=== PATIENT | male | born 1995 | race Caucasian/White ===

== ENCOUNTER 2016-11-29 04:38 | Emergency (ER) | payer BC, OTHER ==
[2016-11-29] MEDS ORDERED: NARCAN 1 MG/ML IV ONE (04:57)
[2016-11-29] MEDS ORDERED: Sodium Chloride 0.9% 1000 ML 1,000 ML IV SCH (05:00)
--- NOTE | 2016-11-29 05:09 | ERPHSYRPT ---
- History of Present Illness Time Seen by Provider: 11/29/16 04:54 Source: other (N.N.) Exam Limitations: other (PT WILL NOT ANSWER ANY OF MY QUESTIONS) Patient Subjective Stated Complaint: PER EMS PT SMOKED DRUGS WITH FRIEND APPROX 1 HOUR AGO. AFTER DOING THIS PT WITH CONFUSION, NOT ACTING RIGHT. PER EMS AMBULATED TO AMBULANCE ASSISTING PT. Triage Nursing Assessment: PT AWAKE, FOLLOWS COMMANDS APPROPRIATELY, DOES NOT SPEAK TO STAFF. SKIN P/W/D, RESPS NON-LABORED. PUPILS PERRL HOWEVER SLUGGISH TO RESPOND. EKG SINUS TACHYCARDIA. SPO2 100% ROOM AIR. Physician History: PT WAS BROUGHT IN BY EMS AFTER ALLEGEDLY SMOKING DRUGS WITH A FRIEND ABOUT 1 HOUR AGO WITH RESULTANT ALTERED MENTAL STATUS. PT WILL NOT ANSWER ANY OF MY QUESTIONS. Allergies/Adverse Reactions: No Known Drug Allergies Allergy (Unverified 11/29/16 06:14) Home Medications: No Home Meds 1 ea MC UD 11/29/16 [History] - Review of Systems Neurological: Other (AMS) All Other Systems: Unable due to condition (PT WILL NOT ANSWER ANY OF MY QUESTIONS.) - Past Medical History Pertinent Past Medical History: No (UNKNOWN) - Past Surgical History Past Surgical History: No (UNKNOWN) - Social History Smoking Status: Unknown if ever smoked Exposure to second hand smoke: (UNKNOWN) Drug Use: other Patient Lives Alone: (UNKNOWN) - Nursing Vital Signs Nursing Vital Signs: Initial Vital Signs Temperature 98.5 F Temperature Source Oral Pulse Rate 108 Respiratory Rate 16 Blood Pressure [Left Arm] 115/44 Pain Intensity 0 - Physical Exam General Appearance: lethargy Eye Exam: PERRL/EOMI Ears, Nose, Throat Exam: dry mucous membranes Neck Exam: normal inspection Respiratory Exam: lungs clear Cardiovascular Exam: tachycardia Gastrointestinal/Abdomen Exam: soft, normal bowel sounds Extremity Exam: normal inspection, No pedal edema Neurologic Exam: uncooperative, other (LETHARGIC) Skin Exam: warm, dry SpO2 Interpretation: normal SpO2: 100 Oxygen Delivery: Room Air - Course Nursing assessment & vital signs reviewed: Yes EKG Interpreted by Me: RATE (120), Sinus Tach, NORMAL AXIS, Other (INCOMPLETE RBBB) - CT Exams Head CT Interpretation: Tele-radiologist Report (NORMAL) Ordered Tests: Active Orders 24 hr Category Date Time Status Accucheck STAT Care 11/29/16 04:57 Active Director Personal STAT Care 11/29/16 04:57 Active Cath for Specimen-Straight STAT Care 11/29/16 04:57 Active Cath for Specimen-Straight STAT Care 11/29/16 04:57 Active EKG-ER Only STAT Care 11/29/16 04:57 Active IV Insertion STAT Care 11/29/16 04:57 Active Psychiatric Evaluation STAT Care 11/29/16 04:57 Active Pulse Oximetry (ED) STAT Care 11/29/16 04:57 Active CHEST 1 VIEW (PORTABLE) Stat Exams 11/29/16 04:59 Taken HEAD WITHOUT CONTRAST [CT] Stat Exams 11/29/16 05:04 Taken ACETAMINOPHEN Stat Lab 11/29/16 05:21 Completed AMYLASE Stat Lab 11/29/16 05:21 Completed ARTERIAL BLOOD GASES Urgent Lab 11/29/16 05:13 Completed BLOOD CULTURE Stat Lab 11/29/16 05:00 Received CBC W DIFF Stat Lab 11/29/16 05:21 Completed CMP Stat Lab 11/29/16 05:21 Completed CULTURE,URINE Stat Lab 11/29/16 04:59 Ordered Ethyl Alcohol,Urine Stat Lab 11/29/16 05:20 Completed LIPASE Stat Lab 11/29/16 05:21 Completed Lactic Acid Urgent Lab 11/29/16 05:13 Completed MAGNESIUM Stat Lab 11/29/16 05:21 Completed Manual Differential NC Stat Lab 11/29/16 05:21 Completed SALICYLATE Stat Lab 11/29/16 05:21 Completed TROPONIN Stat Lab 11/29/16 05:21 Completed UA W/ MICROSCOPIC Stat Lab 11/29/16 05:20 Completed Urine Triage Profile Stat Lab 11/29/16 05:20 Completed Medication Summary Generic Name Dose Route Start Last Admin Trade Name Freq PRN Reason Stop Dose Admin Sodium Chloride 1,000 mls @ 100 mls/hr 11/29/16 05:00 11/29/16 05:45 Sodium Chloride 0.9% 1000 Ml IV 12/29/16 04:59 100 mls/hr .Q10H YULIANA Administration Potassium Chloride 100 mls @ 50 mls/hr 11/29/16 05:36 11/29/16 05:44 Potassium Chloride 20 Meq In Water 100ml IV 11/29/16 07:35 50 mls/hr STAT ONE Administration Magnesium Oxide 400 mg 11/29/16 10:00 11/29/16 06:59 Mag-Ox 400 PO 12/29/16 09:59 400 mg BID YULIANA Administration Discontinued Medications Generic Name Dose Route Start Last Admin Trade Name Briana PRN Reason Stop Dose Admin Sodium Chloride 1,000 mls @ 999 mls/hr 11/29/16 05:35 11/29/16 07:00 Sodium Chloride 0.9% 1000 Ml IV 11/29/16 06:35 999 mls/hr .Q1H1M STA Administration Sodium Chloride Confirm 11/29/16 05:43 Sodium Chloride 0.9% 1000 Ml Administered 11/29/16 05:44 Dose 1,000 mls @ ud .ROUTE .STK-MED ONE Potassium Chloride Confirm 11/29/16 05:43 Potassium Chloride 20 Meq In Water 100ml Administered 11/29/16 05:44 Dose 100 mls @ ud IV .STK-MED ONE Sodium Chloride Confirm 11/29/16 06:57 Sodium Chloride 0.9% 1000 Ml Administered 11/29/16 06:58 Dose 1,000 mls @ ud .ROUTE .STK-MED ONE Magnesium Oxide Confirm 11/29/16 06:58 Mag-Ox 400 Administered 11/29/16 06:59 Dose 400 mg .ROUTE .STK-MED ONE Naloxone HCl 2 mg 11/29/16 04:57 11/29/16 05:45 Narcan 1 Mg/Ml IV 11/29/16 04:58 2 mg STAT ONE Administration Naloxone HCl Confirm 11/29/16 05:43 Narcan 1 Mg/Ml Administered 11/29/16 05:44 Dose 2 mg .ROUTE .STK-MED ONE Lab/Rad Data: Laboratory Result Diagrams 11/29/16 05:21 11/29/16 05:21 Laboratory Results 11/29/16 11/29/16 11/29/16 Range/Units 05:21 05:21 05:21 WBC (4.0-10.5) K/mm3 RBC (4.1-5.6) M/mm3 Hgb (12.5-18.0) gm/dl Hct (42-50) % MCV (78-100) fl MCH (26-32) pg MCHC (32-36) g/dl RDW (11.5-14.0) % Plt Count (150-450) K/mm3 MPV (6-9.5) fl Segmented Neutrophils (36.-66.) % Lymphocytes (Manual) (24-44) % Monocytes (Manual) (0.0-12.0) % Platelet Estimate (NORMAL) Poikilocytosis Anisocytosis Puncture Site pCO2 (35-45) mmHg pO2 (75-100) mmHg Base Excess (-2.0-2.0) O2 Saturation (94-100) g/dF ABG pH (7.35-7.45) ABG HCO3 (22-28) ABG O2 Sat (Measured) (95-100) % Fabián Test A-a Gradient a/A Ratio Hemoglobin Carboxyhemoglobin (0.0-6.9) % THgb Methemoglobin (1.4-1.5) % Potassium 3.5 (3.5-5.1) Temperature C POC O2 Flow Rate % Sodium 140 (136-145) mEq/L Chloride 103 (98-107) mEq/L Carbon Dioxide 26.0 (21-32) mEq/L Anion Gap 14.1 (5-15) MEQ/L BUN 18 (9-20) mg/dL Creatinine 1.24 (0.55-1.30) mg/dl Estimated GFR > 60 ML/MIN Glucose 138 H (70-110) MG/DL Lactic Acid (0.4-2.0) Calcium 8.8 (8.5-10.1) mg/dL Magnesium 1.7 L (1.8-2.4) mg/dL Total Bilirubin 0.2 (0.2-1.0) mg/dL AST 21 (15-37) U/L ALT 31 (12-78) U/L Alkaline Phosphatase 52 (46-116) U/L Troponin I < 0.017 (0.000-0.056) ng/ml Serum Total Protein 7.5 (6.4-8.2) gm/dL Albumin 4.0 (3.4-5.0) g/dL Amylase 57 (25-115) U/L Lipase 175 (73-393) U/L Ur Collection Type Urine Color (YELLOW) Urine Appearance (CLEAR) Urine pH (5-6) Ur Specific [place] (1.005-1.025) Urine Protein (Negative) Urine Glucose (UA) (NEGATIVE) mg/dL Urine Ketones (NEGATIVE) Urine Nitrite (NEGATIVE) Urine Bilirubin (NEGATIVE) Urine Urobilinogen (0-1) mg/dL Urine WBC (Auto) (NEGATIVE) Urine RBC (Auto) (0-5) Nikita/ul Urine Microscopic RBC (0-2) /HPF Ur Epithelial Cells (FEW) /HPF Urine Bacteria (NEGATIVE) /HPF Salicylates < 2.8 L (2.8-20.0) mg/dl Urine Opiates Level (NEGATIVE) Ur Methadone (NEGATIVE) Acetaminophen < 2.0 L (10-30) ug/ml Urine Barbiturates (NEGATIVE) Ur Phencyclidine (PCP) (NEGATIVE) Urine Amphetamine (NEGATIVE) U Benzodiazepine Level (NEGATIVE) Urine Cocaine (NEGATIVE) Urine Marijuana (THC) (NEGATIVE) Urine Ethyl Alcohol (0.00-20) mg/dl Specimen Received 11/29/16 11/29/16 11/29/16 Range/Units 05:21 05:20 05:20 WBC 13.3 H (4.0-10.5) K/mm3 RBC 4.96 (4.1-5.6) M/mm3 Hgb 14.2 (12.5-18.0) gm/dl Hct 42.1 (42-50) % MCV 84.9 (78-100) fl MCH 28.6 (26-32) pg MCHC 33.7 (32-36) g/dl RDW 13.3 (11.5-14.0) % Plt Count 277 (150-450) K/mm3 MPV 10.9 H (6-9.5) fl Segmented Neutrophils 78 H (36.-66.) % Lymphocytes (Manual) 20 L (24-44) % Monocytes (Manual) 2 (0.0-12.0) % Platelet Estimate NORMAL (NORMAL) Poikilocytosis 1+ Anisocytosis 1+ Puncture Site pCO2 (35-45) mmHg pO2 (75-100) mmHg Base Excess (-2.0-2.0) O2 Saturation (94-100) g/dF ABG pH (7.35-7.45) ABG HCO3 (22-28) ABG O2 Sat (Measured) (95-100) % Fabián Test A-a Gradient a/A Ratio Hemoglobin Carboxyhemoglobin (0.0-6.9) % THgb Methemoglobin (1.4-1.5) % Potassium (3.5-5.1) Temperature C POC O2 Flow Rate % Sodium (136-145) mEq/L Chloride (98-107) mEq/L Carbon Dioxide (21-32) mEq/L Anion Gap (5-15) MEQ/L BUN (9-20) mg/dL Creatinine (0.55-1.30) mg/dl Estimated GFR ML/MIN Glucose (70-110) MG/DL Lactic Acid (0.4-2.0) Calcium (8.5-10.1) mg/dL Magnesium (1.8-2.4) mg/dL Total Bilirubin (0.2-1.0) mg/dL AST (15-37) U/L ALT (12-78) U/L Alkaline Phosphatase (46-116) U/L Troponin I (0.000-0.056) ng/ml Serum Total Protein (6.4-8.2) gm/dL Albumin (3.4-5.0) g/dL Amylase (25-115) U/L Lipase (73-393) U/L Ur Collection Type CLEAN CATCH Urine Color YELLOW (YELLOW) Urine Appearance CLEAR (CLEAR) Urine pH 5.5 (5-6) Ur Specific [place] 1.015 (1.005-1.025) Urine Protein NEGATIVE (Negative) Urine Glucose (UA) NEGATIVE (NEGATIVE) mg/dL Urine Ketones NEGATIVE (NEGATIVE) Urine Nitrite NEGATIVE (NEGATIVE) Urine Bilirubin NEGATIVE (NEGATIVE) Urine Urobilinogen 0.2 (0-1) mg/dL Urine WBC (Auto) NEGATIVE (NEGATIVE) Urine RBC (Auto) SMALL (0-5) Nikita/ul Urine Microscopic RBC 5-10 (0-2) /HPF Ur Epithelial Cells FEW (FEW) /HPF Urine Bacteria FEW (NEGATIVE) /HPF Salicylates (2.8-20.0) mg/dl Urine Opiates Level NEG. (NEGATIVE) Ur Methadone NEG. (NEGATIVE) Acetaminophen (10-30) ug/ml Urine Barbiturates NEG. (NEGATIVE) Ur Phencyclidine (PCP) NEG. (NEGATIVE) Urine Amphetamine NEG. (NEGATIVE) U Benzodiazepine Level NEG. (NEGATIVE) Urine Cocaine NEG. (NEGATIVE) Urine Marijuana (THC) NEG. (NEGATIVE) Urine Ethyl Alcohol (0.00-20) mg/dl Specimen Received 0316 0530 11/29/16 11/29/16 Range/Units 05:20 05:13 WBC (4.0-10.5) K/mm3 RBC (4.1-5.6) M/mm3 Hgb (12.5-18.0) gm/dl Hct (42-50) % MCV (78-100) fl MCH (26-32) pg MCHC (32-36) g/dl RDW (11.5-14.0) % Plt Count (150-450) K/mm3 MPV (6-9.5) fl Segmented Neutrophils (36.-66.) % Lymphocytes (Manual) (24-44) % Monocytes (Manual) (0.0-12.0) % Platelet Estimate (NORMAL) Poikilocytosis Anisocytosis Puncture Site RIGHT BRACHIAL pCO2 44 (35-45) mmHg pO2 101 H (75-100) mmHg Base Excess 0.5 (-2.0-2.0) O2 Saturation 96.0 (94-100) g/dF ABG pH 7.38 (7.35-7.45) ABG HCO3 26.0 (22-28) ABG O2 Sat (Measured) 99.4 (95-100) % Fabián Test NOT APPLICABLE A-a Gradient -6 a/A Ratio 1.06 Hemoglobin 14.8 Carboxyhemoglobin 1.8 (0.0-6.9) % THgb Methemoglobin 1.5 (1.4-1.5) % Potassium 3.4 L (3.5-5.1) Temperature 37.0 C POC O2 Flow Rate 21 % Sodium (136-145) mEq/L Chloride (98-107) mEq/L Carbon Dioxide (21-32) mEq/L Anion Gap (5-15) MEQ/L BUN (9-20) mg/dL Creatinine (0.55-1.30) mg/dl Estimated GFR ML/MIN Glucose (70-110) MG/DL Lactic Acid 2.7 H (0.4-2.0) Calcium (8.5-10.1) mg/dL Magnesium (1.8-2.4) mg/dL Total Bilirubin (0.2-1.0) mg/dL AST (15-37) U/L ALT (12-78) U/L Alkaline Phosphatase (46-116) U/L Troponin I (0.000-0.056) ng/ml Serum Total Protein (6.4-8.2) gm/dL Albumin (3.4-5.0) g/dL Amylase (25-115) U/L Lipase (73-393) U/L Ur Collection Type Urine Color (YELLOW) Urine Appearance (CLEAR) Urine pH 5.5 (5-6) Ur Specific [place] (1.005-1.025) Urine Protein (Negative) Urine Glucose (UA) (NEGATIVE) mg/dL Urine Ketones (NEGATIVE) Urine Nitrite (NEGATIVE) Urine Bilirubin (NEGATIVE) Urine Urobilinogen (0-1) mg/dL Urine WBC (Auto) (NEGATIVE) Urine RBC (Auto) (0-5) Nikita/ul Urine Microscopic RBC (0-2) /HPF Ur Epithelial Cells (FEW) /HPF Urine Bacteria (NEGATIVE) /HPF Salicylates (2.8-20.0) mg/dl Urine Opiates Level (NEGATIVE) Ur Methadone (NEGATIVE) Acetaminophen (10-30) ug/ml Urine Barbiturates (NEGATIVE) Ur Phencyclidine (PCP) (NEGATIVE) Urine Amphetamine (NEGATIVE) U Benzodiazepine Level (NEGATIVE) Urine Cocaine (NEGATIVE) Urine Marijuana (THC) (NEGATIVE) Urine Ethyl Alcohol 6 (0.00-20) mg/dl Specimen Received - Progress Progress Note: 11/29/16 07:29 PT IS NOW ORIENTED X3, DENIES SUICIDAL AND HOMICIDAL IDEATION, DENIES PAIN ANYWHERE. REPORTEDLY PT WENT OVER TO A FRIEND'S HOUSE AND SMOKED SOMETHING THAT LOOKED LIKE A CIGAR AND BECAME CONFUSED. [facility] CONSULT RECOMMENDED PT TO GO HOME. - Departure Time of Disposition: 07:38 Departure Disposition: Home Clinical Impression: ALTERED MENTAL STATUS, POSSIBLE DRUG OVERDOSAGE Condition: Fair Critical Care Time: No Instructions: Drug Overdose in Adults Additional Instructions: FOLLOW UP WITH PRIVATE DOCTOR TOMORROW. DO NOT USE ANY MEDICATION UNLESS PRESCRIBED TO YOU BY A DOCTOR.
[2016-11-29 05:17] LABS: A-aADO2 -6; ARTERIAL BLD GAS O2 SATURATION 99.4 % (95-100); ARTERIAL BLOOD GAS BASE EXCESS 0.5 (-2.0-2.0); ARTERIAL BLOOD GAS FIO2 21 %; ARTERIAL BLOOD GAS PO2 101 mmHg (75-100); ARTERIAL BLOOD GAS pH 7.38 (7.35-7.45); Lactic Acid 2.7 (0.4-2.0)
[2016-11-29 05:26] LABS: Mean Cell Volume 84.9 fl (78-100); Mean Corpuscular Hemoglobin 28.6 pg (26-32); Mean Platelet Volume 10.9 fl (6-9.5); Platelet Count 277 K/mm3 (150-450); Red Blood Count 4.96 M/mm3 (4.1-5.6); Red Cell Distribution Width 13.3 % (11.5-14.0); White Blood Count 13.3 K/mm3 (4.0-10.5)
[2016-11-29] MEDS ORDERED: Sodium Chloride 0.9% 1000 ML 1,000 ML IV STA (05:35)
[2016-11-29] MEDS ORDERED: POTASSIUM CHLORIDE 20 mEq IN WATER 100ML 100 ML IV ONE ×2 (05:36→05:43)
[2016-11-29 05:41] LABS: LIPASE 175 U/L (73-393)
[2016-11-29] MEDS ORDERED: Sodium Chloride 0.9% 1000 ML 1,000 ML ONE ×2 (05:43→06:57)
[2016-11-29] MEDS ORDERED: NARCAN 1 MG/ML ONE (05:43)
[2016-11-29 05:46] LABS: ALKALINE PHOSPHATASE 52 U/L (46-116); ANION GAP 14.1 MEQ/L (5-15); BILIRUBIN,TOTAL 0.2 mg/dL (0.2-1.0); BLOOD UREA NITROGEN 18 mg/dL (9-20); CHLORIDE 103 mEq/L (98-107); Glucose 138 MG/DL (70-110); Potassium 3.5 mEq/L (3.5-5.1); SGOT/AST 21 U/L (15-37); SGPT/ALT 31 U/L (12-78); SODIUM 140 mEq/L (136-145); Total Protein 7.5 gm/dL (6.4-8.2)
[2016-11-29 05:48] LABS: MAGNESIUM 1.7 mg/dL (1.8-2.4)
[2016-11-29 05:49] LABS: ACETAMINOPHEN < 2.0 ug/ml (10-30); TROPONIN < 0.017 ng/ml (0.000-0.056)
[2016-11-29 06:00] LABS: COMPLETE URINE MICROSCOPIC? YES; Collection Type CLEAN CATCH; Ph 5.5 (5-6)
[2016-11-29 06:16] LABS: Bacteria FEW /HPF (NEGATIVE); Epithelial Cells FEW /HPF (FEW)
[2016-11-29 06:52] LABS: ANISOCYTOSIS 1+; Platelet Estimate NORMAL (NORMAL); Poikilocytosis 1+; Total Cells Counted 100
[2016-11-29] MEDS ORDERED: MAG-OX 400 ONE (06:58)
--- NOTE | 2016-11-29 09:25 | XRAY ---
Indication: Acute mental status change. Multiple contiguous axial images obtained through the head without contrast. Comparison: None Normal appearing brain parenchyma, ventricles, and bony calvarium. Left sphenoid sinus 5 mm polyp/retention cyst. Remaining visualized paranasal sinuses and mastoid air cells are clear. Impression: No acute intracranial abnormalities. Incidental left sphenoid sinus polyp/retention cyst. Comment: Preliminary interpretation was made by [facility]. No discrepancy. CT DI 68.15
--- NOTE | 2016-11-29 09:27 | XRAY ---
Indication: Acute mental status change. Comparison: June 11, 2016. Single AP chest again demonstrates normal heart, lungs, and bony thorax.
[2016-11-29] MEDS ORDERED: MAG-OX 400 PO SCH (10:00)
[2016-11-29 11:52] VITALS: BP 128/63; PULSE 120; O2SAT 98
== END 2016-11-29 07:48 | disposition home or self-care (01) ==
LOC: ED 04:38
DX: R41.82 Altered mental status, unspecified (principal)
CPT/HCPCS: 36415; 36600; 70450; 71010; 80053; 80307; 80320; 81000; 82150; 82375; 82803; 82962; 83605; 83690; 83735; 83986; 84484; 85025; 87040; 87086; 90791; 93005; 93041; 96360; 96361; 96365; 96366; 96374; 99284; G0481; J2310; J3480; P9612; Q3014; A9270-GY

== ENCOUNTER 2017-08-06 04:58 | Observation (INO) | payer OTHER, SELFPAY ==
[2017-08-06] MEDS ORDERED: TORAdol 30 mg Injection IV ONE (05:15)
--- NOTE | 2017-08-06 05:17 | ERPHSYRPT ---
<PADDY CHADWICK - Last Filed: 08/06/17 06:54> - History of Present Illness Time Seen by Provider: 08/06/17 05:11 Historian: patient Exam Limitations: no limitations Patient Subjective Stated Complaint: Pt C/O shortness of breath with cough. Reports recent febrile illness with temp highest 104 at home. Reports this was greater than 48 hours ago. Reports pain started left side of ribs radiating into collarbone worse with deep inspiration and movement since yesterday. Reports pain 10/10. Reports cough has been dry and non-productive. Triage Nursing Assessment: Pt alert, oriented, answers questions appropriately. Pt ambulatory to tx room, steady gait noted. Pt appears tachypenic, speaking in 4-5 word bursts. Pt yells out when taking a deep breath. Lung sounds clear all matthews. No wheezes, rhonchi, rales noted. Physician History: 21 y/o male comes to the ER with complaints of pleuritic chest pain, cough and subjective fever. Pt states that he started having fever a few days ago as well as cough. There are multiple people in the house who had similar symptoms. Pt also reports that yesterday at noon he started having left sided chest pain that went over to the right side and radiates to the collar bone. Pt describes the pain as sharp, constant, worse with inspiration, 10/10 and pt has not taken any pain meds. Timing/Duration: day(s) Activities at Onset: none Quality: sharpness Location: substernal Chest Pain Radiation: back Severity of Pain-Max: severe Severity of Pain-Current: severe Modifying Factors: Improves With: breathing, coughing Associated Symptoms: shortness of breath, cough Prior Chest Pain/Cardiac Workup: no prior chest pain Nitro Today/Relief: no nitro taken today Aspirin Treatment Today: no aspirin today Allergies/Adverse Reactions: No Known Drug Allergies Allergy (Unverified 11/29/16 06:14) Home Medications: No Home Meds [No Home Meds] 1 [facility] YEFRI 11/29/16 [History] Immunizations Up to Date: No - Review of Systems Constitutional: No Fever, No Chills Eyes: No Symptoms Ears, Nose, & Throat: No Symptoms Respiratory: Cough, Dyspnea, Dyspnea on Exertion (LYON) Cardiac: Chest Pain, No Edema, No Palpitations, No Syncope Abdominal/Gastrointestinal: No Abdominal Pain, No Nausea, No Vomiting, No Diarrhea Genitourinary Symptoms: No Dysuria Musculoskeletal: No Back Pain, No Neck Pain Skin: No Rash Neurological: No Dizziness, No Focal Weakness, No Sensory Changes Psychological: No Symptoms Endocrine: No Symptoms All Other Systems: Reviewed and Negative - Past Medical History Pertinent Past Medical History: No - Past Surgical History Past Surgical History: No - Social History Smoking Status: Never smoker Exposure to second hand smoke: No Drug Use: none, other Patient Lives Alone: No - Nursing Vital Signs Nursing Vital Signs: Initial Vital Signs Temperature 98.2 F 08/06/17 05:06 Pulse Rate 109 H 08/06/17 05:06 Respiratory Rate 28 H 08/06/17 05:06 Blood Pressure 141/89 08/06/17 05:06 O2 Sat by Pulse Oximetry 96 08/06/17 05:06 Pain Scale Pain Intensity 8 - Physical Exam General Appearance: moderate distress, alert Eye Exam: PERRL/EOMI, eyes nml inspection Ears, Nose, Throat Exam: normal ENT inspection, moist mucous membranes Neck Exam: normal inspection, non-tender, supple, full range of motion Respiratory Exam: normal breath sounds, chest tenderness, lungs clear, No respiratory distress Cardiovascular Exam: regular rate/rhythm, normal heart sounds, tachycardia Gastrointestinal/Abdomen Exam: soft, No tenderness, No mass Back Exam: normal inspection, No CVA tenderness, No vertebral tenderness Extremity Exam: normal inspection, normal range of motion Neurologic Exam: alert, oriented x 3, cooperative, normal mood/affect, sensation nml, No motor deficits Skin Exam: normal color, warm, dry SpO2 Interpretation: normal SpO2: 96 Oxygen Delivery: Room Air - Course Nursing assessment & vital signs reviewed: Yes EKG Interpreted by Me: RATE, NORMAL AXIS, NORMAL INTERVALS, NORMAL QRS, NORMAL ST-T (HR 94) Ordered Tests: Active Orders 24 hr Category Date Time Status Plastics Repairer STAT Care 08/06/17 05:15 Active EKG-ER Only STAT Care 08/06/17 05:14 Active IV Insertion STAT Care 08/06/17 05:14 Active IV Insertion-2nd Peripheral STAT Care 08/06/17 07:25 Active NPO (ED) STAT Care 08/06/17 07:32 Active Oxygen-ED Only NASAL CANNULA 2 lpm Care 08/06/17 07:35 Active CHEST 2 VIEWS (PA AND LAT) Stat Exams 08/06/17 05:14 Taken CHEST WITH CONTRAST [CT] Stat Exams 08/06/17 06:20 Taken BLOOD CULTURE Stat Lab 08/06/17 05:30 Received CBC W DIFF Stat Lab 08/06/17 05:10 Completed CK-Creatinine Phosphokinase Stat Lab 08/06/17 05:10 Completed CMP Stat Lab 08/06/17 05:10 Completed D-DIMER QUANTITATION Stat Lab 08/06/17 05:10 Completed Lactic Acid Stat Lab 08/06/17 05:15 Ordered NT PRO BNP Stat Lab 08/06/17 07:25 Ordered PROTIME WITH INR Stat Lab 08/06/17 07:24 Ordered PTT Stat Lab 08/06/17 07:24 Ordered TROPONIN Q3H Lab 08/06/17 05:10 Completed TROPONIN Q3H Lab 08/06/17 08:15 Ordered TROPONIN Q3H Lab 08/06/17 11:15 Ordered TROPONIN Q3H Lab 08/06/17 14:15 Ordered TROPONIN Q3H Lab 08/06/17 17:15 Ordered Medication Summary Generic Name Dose Route Start Last Admin Trade Name Freq PRN Reason Stop Dose Admin Apixaban 10 mg 08/06/17 10:00 Eliquis PO 09/05/17 09:59 BID YULIANA Sodium Chloride 1,000 mls @ 100 mls/hr 08/06/17 07:45 08/06/17 07:39 Sodium Chloride 0.9% 1000 Ml IV 09/05/17 07:44 100 mls/hr .Q10H YULIANA Administration Discontinued Medications Generic Name Dose Route Start Last Admin Trade Name Freq PRN Reason Stop Dose Admin Sodium Chloride 1,000 mls @ 999 mls/hr 08/06/17 05:57 08/06/17 06:01 Sodium Chloride 0.9% 1000 Ml IV 08/06/17 06:57 999 mls/hr .Q1H1M STA Administration Sodium Chloride Confirm 08/06/17 06:00 Sodium Chloride 0.9% 1000 Ml Administered 08/06/17 06:01 Dose 1,000 mls @ ud .ROUTE .STK-MED ONE Ketorolac Tromethamine 30 mg 08/06/17 05:15 08/06/17 05:19 Toradol 30 Mg Injection IV 08/06/17 05:16 30 mg STAT ONE Administration Ketorolac Tromethamine Confirm 08/06/17 05:18 Toradol 30 Mg Injection Administered 08/06/17 05:19 Dose 30 mg .ROUTE .STK-MED ONE Morphine Sulfate 4 mg 08/06/17 05:57 08/06/17 06:02 Morphine Sulfate 4 Mg Inj IV 08/06/17 05:58 4 mg STAT ONE Administration Morphine Sulfate Confirm 08/06/17 06:00 Morphine Sulfate 4 Mg Inj Administered 08/06/17 06:01 Dose 4 mg .ROUTE .STK-MED ONE Lab/Rad Data: Laboratory Result Diagrams 08/06/17 05:10 08/06/17 05:10 Laboratory Results 08/06/17 08/06/17 08/06/17 Range/Units 05:10 05:10 05:10 WBC (4.0-10.5) K/mm3 RBC (4.1-5.6) M/mm3 Hgb (12.5-18.0) gm/dl Hct (42-50) % MCV (78-100) fl MCH (26-32) pg MCHC (32-36) g/dl RDW (11.5-14.0) % Plt Count (150-450) K/mm3 MPV (6-9.5) fl Gran % (36.0-66.0) % Lymphocytes % (24.0-44.0) % Monocytes % (0.0-12.0) % Eosinophils % (0.00-5.0) % Basophils % (0.0-0.4) % Basophils # (0-0.4) D-Dimer 7055 H* (0-500) ng/mL Sodium 139 (136-145) mEq/L Potassium 3.9 (3.5-5.1) mEq/L Chloride 96 L (98-107) mEq/L Carbon Dioxide 28.9 (21-32) mEq/L Anion Gap 17.9 H (5-15) MEQ/L BUN 10 (9-20) mg/dL Creatinine 1.36 H (0.55-1.30) mg/dl Estimated GFR > 60 ML/MIN Glucose 129 H (70-110) MG/DL Calcium 9.3 (8.5-10.1) mg/dL Total Bilirubin 0.90 (0.2-1.0) mg/dL AST 14 L (15-37) U/L ALT 32 (12-78) U/L Alkaline Phosphatase 51 (46-116) U/L Creatine Kinase 77 (39-308) U/L Troponin I < 0.017 (0.000-0.056) ng/ml Serum Total Protein 8.8 H (6.4-8.2) gm/dL Albumin 3.9 (3.4-5.0) g/dL 08/06/17 Range/Units 05:10 WBC 8.9 (4.0-10.5) K/mm3 RBC 5.17 (4.1-5.6) M/mm3 Hgb 14.7 (12.5-18.0) gm/dl Hct 43.5 (42-50) % MCV 84.1 (78-100) fl MCH 28.4 (26-32) pg MCHC 33.8 (32-36) g/dl RDW 12.5 (11.5-14.0) % Plt Count 326 (150-450) K/mm3 MPV 10.3 H (6-9.5) fl Gran % 72.8 H (36.0-66.0) % Lymphocytes % 17.6 L (24.0-44.0) % Monocytes % 7.5 (0.0-12.0) % Eosinophils % 1.7 (0.00-5.0) % Basophils % 0.4 (0.0-0.4) % Basophils # 0.04 (0-0.4) D-Dimer (0-500) ng/mL Sodium (136-145) mEq/L Potassium (3.5-5.1) mEq/L Chloride (98-107) mEq/L Carbon Dioxide (21-32) mEq/L Anion Gap (5-15) MEQ/L BUN (9-20) mg/dL Creatinine (0.55-1.30) mg/dl Estimated GFR ML/MIN Glucose (70-110) MG/DL Calcium (8.5-10.1) mg/dL Total Bilirubin (0.2-1.0) mg/dL AST (15-37) U/L ALT (12-78) U/L Alkaline Phosphatase (46-116) U/L Creatine Kinase (39-308) U/L Troponin I (0.000-0.056) ng/ml Serum Total Protein (6.4-8.2) gm/dL Albumin (3.4-5.0) g/dL - Progress Progress: improved Air Movement: good Progress Note: 08/06/17 06:36 The CXR shows a small left pleural effusion and a likely infiltrate or atelectasis. The d-dimer is very high over 7000. The patient will go for CT chest to R/O PE. The EKG and cardiac workup is within normal limits. Pt also appears dehydrated and was also given NS fluids. The patient has no relief after receiving toradol but does have relief after receiving morphine. - Departure Clinical Impression: Bilateral pulmonary embolism Condition: Fair <JOSESITO BROOKS - Last Filed: 08/06/17 08:00> - CT Exams CTA chest CT Interpretation: Tele-radiologist Report (Extensive nonoccluding bilateral PEs in all lobar branches, bibasilar atx.) - Progress Progress Note: 08/06/17 07:35 21 y/o patient initially seen per Dr Chadwick. He is a previously healthy smoker who had one week diarrhea illness 2 weeks ago followed by some lymph node enlargement in face and mouth sores which is all gone now. He had some pleuritic chest pain last night left chest/ribs. Mild cough. No fever or chills. Awoke today very short of breath, worse with exertion. No recent bleeding, blood in stools, nor hematuria. Surg: None ALL: PCN-childhood Meds: None Social: , 2 small kids, no job, smoker, no alcohol, no drug use Fam: No fam hx of blood clots or thrmbophilia known PE: Breathless with exertion. Afebrile. Lungs have left basilar rales. Cor: reg without murmur, hyperdynamic. Abd soft with mild discomfort diffuse. Femoral pulses 1+ bilateral. Legs: No edema, pulses intact, no redness, no swelling, no tenderness. Skin well perfused without rash. Neuro: no deficits. CTA: extensive nonoccluding bilateral PE Imp: Bilateral pulmonary emboli- only risk factors identified are smoking and recent illness with inactivity. Plan: Pt and aware. Paged Dr Darrian Candelario pulmonary to discuss plan for anticoagulation and hospitalization. 08/06/17 07:[address] Darrian Candelario. He advised place pt in observation here, start eliquis 10mg po BID X 7 days then 5mg BID, social service consult for 30 day free sample process and insurance, bilateral venous dopplers, and thrmbophilia workup. Spoke to Dr Coleman (oc) and will place in observation ICU. Discussed with : Jared Will see patient in: hospital (observation) Counseled pt/family regarding: lab results, diagnosis, need for follow-up, rad results - Departure Time of Disposition: 07:59 Departure Disposition: Observation (ICU) Critical Care Time: Yes Critical Care Time(excluding separately billable procedures): 30-74 minutes
[2017-08-06] MEDS ORDERED: TORAdol 30 mg Injection ONE (05:18)
[2017-08-06 05:23] LABS: BASOPHIL % 0.4 % (0.0-0.4); Eosinophil % 1.7 % (0.00-5.0); Granulocytes % 72.8 % (36.0-66.0); Lymphocytes % 17.6 % (24.0-44.0); Mean Cell Volume 84.1 fl (78-100); Mean Corpuscular Hemoglobin 28.4 pg (26-32); Mean Platelet Volume 10.3 fl (6-9.5); Monocytes % 7.5 % (0.0-12.0); Platelet Count 326 K/mm3 (150-450); Red Blood Count 5.17 M/mm3 (4.1-5.6); Red Cell Distribution Width 12.5 % (11.5-14.0); White Blood Count 8.9 K/mm3 (4.0-10.5)
[2017-08-06 05:51] LABS: ALBUMIN 3.9 g/dL (3.4-5.0); ALKALINE PHOSPHATASE 51 U/L (46-116); ANION GAP 17.9 MEQ/L (5-15); BLOOD UREA NITROGEN 10 mg/dL (9-20); CHLORIDE 96 mEq/L (98-107); Carbon Dioxide 28.9 mEq/L (21-32); Glucose 129 MG/DL (70-110); Potassium 3.9 mEq/L (3.5-5.1); SGOT/AST 14 U/L (15-37); SGPT/ALT 32 U/L (12-78); SODIUM 139 mEq/L (136-145); Total Protein 8.8 gm/dL (6.4-8.2)
[2017-08-06] MEDS ORDERED: MORPHINE SULFATE 4 MG INJ IV ONE (05:57)
[2017-08-06] MEDS ORDERED: Sodium Chloride 0.9% 1000 ML 1,000 ML IV STA (05:57)
[2017-08-06] MEDS ORDERED: Sodium Chloride 0.9% 1000 ML 1,000 ML ONE (06:00)
[2017-08-06] MEDS ORDERED: MORPHINE SULFATE 4 MG INJ ONE (06:00)
[2017-08-06 07:33] LABS: INR 1.38 (0.8-3.0); PROTIME 15.4 SECONDS (8.83-12.87)
[2017-08-06 07:36] LABS: PTT 32.2 SECONDS (24.1-36.1)
[2017-08-06] MEDS ORDERED: Sodium Chloride 0.9% 1000 ML 1,000 ML IV SCH (07:45)
[2017-08-06] MEDS ORDERED: ELIQUIS PO ONE (07:56)
[2017-08-06] MEDS: D5W/0.45NS W/ 20mEq KCl 1000 ML 1,000 ML IV SCH ×2 (08:54→19:42)
--- NOTE | 2017-08-06 09:01 | XRAY ---
Indication: Chest pain. Fever, weakness, diarrhea. Comparison: November 29, 2016. PA/lateral chest demonstrates new bibasilar infiltrates versus atelectasis left greater than right. Remaining heart, lungs, and bony thorax normal. Comment: Preliminary interpretation was made by [facility]. No discrepancy.
--- NOTE | 2017-08-06 09:05 | XRAY ---
Indication: Chest pain. Elevated d-dimer. Multiple contiguous axial images obtained through the chest using 80 cc Isovue 370 contrast and PE protocol. Comparison: None. There is adequate opacification of the pulmonary arteries. There are extensive nonoccluding pulmonary emboli in all lobar branches including the distal left and right main pulmonary arteries. Heart is not enlarged. Aorta is normal in course and caliber. No pathologic mediastinal/hilar lymphadenopathy. Examination of the lung parenchyma bibasilar infiltrates/atelectasis, left greater than right. No suspicious pulmonary mass/nodule or effusion. Bony thorax intact. Limited upper abdomen unremarkable. Impression: 1. Extensive nonoccluding bilateral pulmonary emboli. No distal infarct. 2. Bibasilar infiltrates/atelectasis. CT DI 23.46
[2017-08-06] MEDS: MORPHINE SULFATE 4 MG INJ IV PRN ×4 (09:48→19:38)
--- NOTE | 2017-08-06 10:07 | HP ---
HISTORY OF PRESENT ILLNESS: This is a 21 year-old man without a physician who presented to the emergency department this morning. He reports yesterday around noon he woke up and could only take a half a breath without pain. He reports that at 0400 hours this morning he tried to lay down and it hurt to take even a little bit of a breath. He felt like he could not even get 15% of a breath. He stated it hurt on his left side behind his ribs, in his back up to his collar bone. He reports because he cannot breathe deeply he has not had a cough but feels like he could cough if he could get a deep breath and it does hurt whenever he tries to take a deep breath or cough. He reports a tactile fever last week, night sweats two weeks for three nights in a row. He reports some sores on his tongue that were very painful one to two weeks ago that have healed up but you can still see the spots on his tongue. He denies any travel. No family history of clotting disorders. He denies taking any herbal medicines or steroids. In the emergency department he had a CT scan of his chest that revealed extensive non-occluding bilateral pulmonary emboli with no distal infarct. The emergency room doctor contacted anatomic pathologist, Dr. Festus Candelario, who recommended anticoagulation with Eliquis and observation. The patient reports his pain was taken from over a 10 down to 6 with morphine given in the emergency room. He reports that he is able to breathe a little better now but still hurts behind his ribs. He denies any lower extremity edema. He reports he had a lymph node under his left jaw that was swollen. He denies any weight loss. REVIEW OF SYSTEMS: He has had some diarrhea that was worse a couple of weeks ago. No nausea or vomiting. No blood in the diarrhea. He reports he did have diarrhea three times last night. He reports that he does not urinate much in general. Otherwise review of systems is as mentioned in the history of present illness. PAST MEDICAL HISTORY: Heartburn. No history of hospitalization. PAST SURGICAL HISTORY: None. MEDICATIONS: Prilosec [id number]. ALLERGIES: NKDA. SOCIAL HISTORY: He rarely uses alcohol. He reports he uses nasal snuff otherwise no tobacco besides this. No cocaine. No meth. He is unemployed at this time. He lives with his with her mother and father. There are two children in the home one is his biological child and a step-son. FAMILY HISTORY: His mother and father are living and healthy. PHYSICAL EXAMINATION: VITAL SIGNS: Temperature current 98.2F, temperature max 98.2F, heart rate 91 to 109 currently 96, respiratory rate 18 to 28 currently 18, blood pressure 120 to 141 over 71 to 89 currently 120/75, weight 97.5 kg. Oxygen saturation 94 to 99% on room air to 1 liter nasal cannula. GENERAL: The patient is sitting up in bed in no acute distress, talkative, pleasant. HEENT: Mouth - On his tongue you can see darker pigmentation approximately 2 x 3 mm in diameter and four spots on his anterior tongue. No active blisters. Throat is without any erythema or exudate. NECK: He has a mobile 1 cm lymph node in the left maxillary area. No other cervical lymphadenopathy is appreciated. No supra or infraclavicular lymphadenopathy is appreciated. CVS: Heart has a regular rate and rhythm. No murmurs, gallops or rubs are appreciated. CHEST: He has decreased breath sounds bilaterally. No crackles or wheezes. ABDOMEN: Soft, nontender, nondistended with no hepatosplenomegaly. EXTREMITIES: No clubbing, cyanosis or edema. SKIN: Warm, dry and intact. His hands he does have some dry peeling skin on his palms. LABORATORY DATA AND TESTS: CBC was within normal limits. D-dimer was 7,055. International normalized ratio 1.38. Chloride 96, glucose 129. Troponin was negative. BNP was normal at 31. His protein was high at 8.8. Chest CT was extensive non-occluding bilateral pulmonary emboli. Please see the radiologist dictation for the full report. Chest x-ray was read as new bibasilar infiltrates versus atelectasis left greater than right, remaining heart, lungs and bony thorax normal. ASSESSMENT AND PLAN: 1) BILATERAL PULMONARY EMBOLI: The emergency room doctor had ordered anticoagulation work up per the recommendation of Washer Engineer Helper, Dr. Festus Candelario, whom the emergency room doctor, Dr. June, said he talked to over the phone. He has been started on Eliquis and has received 10 mg, will continue with 10 mg b.i.d. for seven days followed by 5 mg b.i.d. after this. I have asked for hematology consult given the extensive emboli and high protein level. Continue with morphine for IV pain control, oxygen as needed, telemetry in the ICU at this time. This appears to be unprovoked so at this time he will need to continue anticoagulation indefinitely. Again, I consulted the seamless tube drawer. 2) RECENT ULCERS ON HIS TONGUE: He denies any history of exposure to sexually transmitted infections. I would like to go ahead and check RPR and HIV. 3) HIGH PROTEIN: I have ordered serum protein electrophoresis (SPEP) and again hematology consult.
--- NOTE | 2017-08-06 10:30 | XRAY ---
Indication: Bilateral PE. Two-dimensional sonogram and color Doppler imaging of the major venous vessels of the left and right leg was performed. Comparison: None. No thrombus seen in the examined deep venous vessels of the left and right leg including greater saphenous veins. Veins demonstrate normal compressibility. Venous waveforms are normal with and without augmentation. Impression: Left and right legs negative for DVT.
[2017-08-06] MEDS: TYLENOL 325 MG PO PRN (16:21)
[2017-08-06] MEDS: DILAUDID 1 MG/1ML PCA IV PRN (21:28)
[2017-08-06] MEDS ORDERED: ELIQUIS PO SCH ×2 (22:00)
[2017-08-07] MEDS: DILAUDID 1 MG/1ML PCA IV PRN (06:00)
[2017-08-07] MEDS ORDERED: Narcan 0.4 MG/ML IV PRN (07:00)
[2017-08-07] MEDS: ENOXAPARIN SODIUM SQ SCH ×2 (07:56→21:08)
--- NOTE | 2017-08-07 08:42 | CONS ---
CONSULT DATE: 08/07/2017 REASON FOR CONSULT: Bilateral pulmonary embolism. HISTORY: Amador Otto is a 21 year-old white male admitted to [facility] with acute onset of chest pain and shortness of breath even with minimal exertion and the patient said he could not even take half a breath so the patient came to the emergency room. Before he came to the emergency room for the last ten days the patient has suffered from diarrhea, fever, generalized weakness. The patient denies any previous history of blood clot. He denies any family history of blood clots. In the emergency room, the patient had a CT scan of the chest with pulmonary embolism protocol. CT angiogram was done and found to have extensive non-occluding bilateral pulmonary emboli. There were extensive non-occluding pulmonary emboli in all lobar branches including the distal left and right main pulmonary arteries. The heart is not enlarged. Aorta is normal in course and caliber. No pathologic mediastinal/hilar lymphadenopathy. Examination of the lung parenchyma bibasilar infiltrate/atelectasis left greater than right noted. No suspicious pulmonary mass, nodule or effusion noted. Limited upper abdomen unremarkable. Bony thorax is intact. The patient was started on Eliquis 10 mg b.i.d. The patient required oxygen supplement and the patient was admitted on 08/06/2017. Today on 08/07/2017, the patient is still complaining of breathing problem. He said he has some improvement but not complete improvement and still could not breathe very well. His oxygen saturations while walking went down to 85% requiring oxygen supplement 2 liters. He is maintaining oxygen saturation more than 90% with 2 liters oxygen. The patient still has pain behind the sternum. The patient feels that the pain is not improving with morphine but improves with the Dilaudid with only temporary benefit in aches and pains. The patient also had coughed up some blood yesterday one time. Denies any nausea, vomiting or problem with diet. Denied urinary problem, sore throat, headache, blurring of vision. The patient states that he had diarrhea before he came to the hospital but looks like improved. PAST MEDICAL HISTORY: Heartburn. No other medical problems. No past hospitalizations. PAST SURGICAL HISTORY: None. MEDICATIONS: He takes some antacids. ALLERGIES: NKDA. SOCIAL HISTORY: He is . He lives with his . He has two children. He rarely uses alcohol. He reports he uses nasal snuff otherwise no tobacco use. No cocaine. No meth. Currently unemployed. FAMILY HISTORY: Noncontributory. No history of thrombosis, blood clot or early stroke in the family. PHYSICAL EXAMINATION: Well built, well nourished, alert, awake, oriented. SKIN: No cyanosis. No clubbing. No pallor. HEENT: Head atraumatic. Pupils reacting to light, nonicteric conjunctivae. Normal oral mucosa. NECK: Supple. No raise in JVD. LUNGS: Bilaterally clear. HEART: Normal heart sounds. ABDOMEN: Soft, bowel sounds present. No hepatosplenomegaly. : Genitalia normal. No testicular mass or swelling. EXTREMITIES: No edema. GARAGE HELPER: Nonfocal. LAB DATA AND TESTS: PTT 32. International normalized ratio 1.38. White blood cell count 8.9, hemoglobin 14.7, PLT 326. Sodium 139, potassium 3.9, BUN 10, creatinine 1.36, calcium 9.3, AST 14, ALT 32, alkaline phosphatase 51, creatinine kinase 77. IMPRESSION: A 21 year-old white male with bilateral pulmonary embolism with non-occluded all lobar both right and left branches of the pulmonary arteries pulmonary emboli. Venous Doppler of both legs no evidence of deep venous thrombosis. The patient complaining of chest pain and shortness of breath with oxygen saturation 85% with room air is improving with 2 liters oxygen currently on Eliquis 10 mg b.i.d. I discussed with the patient about the bilateral pulmonary emboli and possible etiology including possible genetic mutations and I did not see any definite acquired reasons. The patient has unprovoked pulmonary embolism. The patient does require work up and also I recommend repeating CT angiogram of the chest as the patient's pain and breathing problem is not improving even after second day of the anticoagulation to rule out any saddle embolism. I also discussed about work up including protein C, factor V Leiden, antiphospholipid antibody panel to find out etiology. Also I discussed about treatment options including Lovenox and Eliquis the risks, benefits and alternatives, potential life threatening risk and the patient understood. PLAN: 1) Start Lovenox 1 mg/kg subcu b.i.d. for three days. 2) I agree with Eliquis 10 mg b.i.d. 3) Repeat CT of chest to rule out any progression of pulmonary embolism. 4) Once the patient is stable he can be discharged to home and follow as an outpatient.
--- NOTE | 2017-08-07 09:02 | PCM.NOTE ---
Date and Time: 08/07/17901 Subjective Assessment: Patient reports he coughed up some blood tinged sputum this AM. His nurse reports that Dr. Potts saw him this AM and made changes to his orders. Patient continues to have chest pain and has a hard time taking a deep breath. He was placed back on oxygen after a short desaturation with the coughing episode. - Review of Systems Eyes: No Symptoms Ears, Nose, & Throat: No Symptoms Respiratory: Cough, Orthopnea, Short Of Breath Cardiac: Chest Pain Abdominal/Gastrointestinal: No Symptoms Genitourinary Symptoms: No Symptoms Musculoskeletal: No Symptoms Skin: No Symptoms Neurological: No Symptoms Objective Exam General Appearance: mild distress Neurologic Exam: alert, cooperative, normal mood/affect Skin Exam: normal color, warm, dry, No rash Respiratory Exam: other (decreased breath sounds at bases, no crackles, no wheezes) Cardiovascular Exam: other (tachycardia, no m/g/r) Gastrointestinal/Abdomen Exam: soft, normal bowel sounds, No tenderness, No distention, No mass Extremity Exam: normal inspection, other (no c/c/e) OBJECTIVE DATA Vital Signs: Vital Signs - 24 hr Temp Pulse Resp BP BP Pulse Ox 08/07/17 07:49 98 F 100 H 23 125/73 100 08/07/17 06:00 98.1 F 107 H 26 H 123/86 97 08/07/17 04:00 102 H 26 H 123/86 08/07/17 02:00 93 H 24 133/86 91 L 08/07/17 00:00 98.1 F 92 H 26 H 127/76 94 L 08/06/17 21:52 86 28 H 127/77 96 08/06/17 21:28 97 08/06/17 20:00 98.3 F 82 121/72 98 08/06/17 17:59 90 22 135/79 97 08/06/17 15:55 97.8 F 93 H 16 112/56 121/77 97 08/06/17 14:00 93 H 19 121/77 96 08/06/17 11:52 98 F 77 14 121/70 94 L 08/06/17 09:53 95 H 16 129/66 95 08/06/17 09:30 106 H 18 95 Oxygen-Last 24 hours O2 Percentage 2 Liters = 28% O2 Percentage 2 Liters = 28% Oxygen Flowrate (L/min)-RT 2 Pain Assessment - Last Documented Pain Intensity 5 Pain Scale Used 0-10 Pain Scale Intake and Output: Intake & Output 08/05/17 08/06/17 08/07/17 08/08/17 06:59 06:59 06:59 06:59 Intake Total 2994 Output Total 1300 Balance 1694 Weight 90.3 kg Lab Results: Lab Results-Last 24 Hours 08/06/17 08/06/17 08/06/17 Range/Units 08:30 11:20 11:20 BUN (9-20) mg/dL Creatinine (0.55-1.30) mg/dl Estimated GFR ML/MIN Troponin I < 0.017 < 0.017 (0.000-0.056) ng/ml RPR Nonreactive (Nonreactive) 08/06/17 08/06/17 08/07/17 Range/Units 14:05 17:31 07:40 BUN 6 L (9-20) mg/dL Creatinine (0.55-1.30) mg/dl Estimated GFR ML/MIN Troponin I < 0.017 < 0.017 (0.000-0.056) ng/ml RPR (Nonreactive) 08/07/17 Range/Units 07:40 BUN (9-20) mg/dL Creatinine 1.05 (0.55-1.30) mg/dl Estimated GFR > 60 ML/MIN Troponin I (0.000-0.056) ng/ml RPR (Nonreactive) Radiology Exams: Radiology Procedures Category Date Time Status CTA CHEST W AND/OR WO [CT] Routine Exams 08/07/17 12:00 Ordered Multi-Disciplinary Progress Notes: Multi-Disciplinary Progress Notes 08/06/17 11:22 Case Management Note by Khushboo Flynn CALL TO PT'S INSURANCE COMPANY. ELIQUIS IS COVERED BY INSURANCE, IT IS A TIER 2 DRUG, WHICH MEANS THAT PT WILL HAVE THE HIGHEST COPAY ($8.00) IF HE HAS A COPAY. Initialized on 08/06/17 11:22 - END OF NOTE Assessment/Plan (1) Bilateral pulmonary embolism Current Visit: Yes Status: Acute Assessment & Plan: Repeat Chest CT was done today without worsening of the PE. Dr. Potts saw him today and decided to hold the Eliquis and start lovenox at anticoaguation doses for 3 days and then restart Eliquis. I called and talked to Dr. Potts about this as his note says to do both lovenox and Eliquis, but he states he changed his mind and decided to hold Eliquis and use lovenox for [address] updated Dr. Candelario about his worsening status this AM before 9 am as he was consulted from the ER. I also asked the nurse to update him after the CT scan he had today. He stated he was not consulted except from the ER to the nurse per her note so I placed a consult order in the computer. He was changed to a dilauidid WEIGHT CALCULATOR last night as morphine 4 mg IV q2 hours was not controlling his pain. Continue with ICU monitoring. US for DVT in his legs were negative yesterday. His blood pressure has been stable. He is more hypoxic today. Code(s): I26.99 - OTHER PULMONARY EMBOLISM WITHOUT ACUTE COR PULMONALE (2) Fever Current Visit: Yes Status: Acute Assessment & Plan: Patient developed a fever this afternoon. I asked for CBC and blood cultures. Most likely this is from atelectasis as he is not taking very deep breaths. Code(s): R50.9 - FEVER, UNSPECIFIED (3) Tobacco abuse Current Visit: Yes Status: Acute Assessment & Plan: History of using snuff. Code(s): Z72.0 - TOBACCO USE
[2017-08-07] MEDS: D5W/0.45NS W/ 20mEq KCl 1000 ML 1,000 ML IV SCH ×2 (09:35→23:28)
[2017-08-07 12:15] LABS: APTT In Lupus Anticoagulant 26.2 sec (23.0-34.0); Lupus Anticoagulant MIX1 47.6 sec (0.0-45.0); Lupus Anticoagulant Pat 2 41.2 sec (0.0-38.0); Lupus Anticoagulant Pat1 52.5 sec (0.0-45.0); Prothrombin Time Sensitive 12.3 sec (9.0-12.0)
[2017-08-07] MEDS: TYLENOL 325 MG PO PRN (12:49)
[2017-08-07 12:55] LABS: Ratio For TTI 1.6 (<=1.3)
--- NOTE | 2017-08-07 13:05 | XRAY ---
Indication: Known PE. Elevated d-dimer. Multiple contiguous axial images obtained through the chest using 80 cc Isovue 370 contrast and PE protocol. Comparison: One day earlier. There is again adequate opacification of the pulmonary arteries with stable extensive bilateral pulmonary emboli in all the lobar branches. Heart is not enlarged. Aorta is normal in course and caliber. No pathologic mediastinal/hilar lymphadenopathy. Examination of the lung parenchyma demonstrates developing small bibasilar effusions with moderate bilateral lower lobe compressive atelectasis. Upper lungs clear. Bony thorax intact. Limited upper abdomen unremarkable. Impression: 1. Stable extensive bilateral pulmonary emboli. 2. New small bibasilar effusions with bilateral lower lobe atelectasis. CT DI 20.87
[2017-08-07 13:27] LABS: Mean Corpuscular Hemoglobin 28.3 pg (26-32); Mean Platelet Volume 10.4 fl (6-9.5); Platelet Count 257 K/mm3 (150-450); Red Blood Count 4.42 M/mm3 (4.1-5.6); Red Cell Distribution Width 12.3 % (11.5-14.0); White Blood Count 10.6 K/mm3 (4.0-10.5)
[2017-08-08 04:38] VITALS: BP 121/80; PULSE 97; O2SAT 96
--- NOTE | 2017-08-08 07:59 | XRAY ---
Indication: Short of breath. Comparison: August 06, 2017. Portable chest demonstrates new CT proven small bibasilar pleural effusions with adjacent atelectasis. Upper lungs clear. Heart is not enlarged.
[2017-08-09 03:42] LABS: Protein S Total Antigen 131 % (84-134)
[2017-08-09 13:47] LABS: Antithrombin III Func/Act 97 % (80-120)
[2017-08-09 14:11] LABS: Protein C Functional/Activity 59 % (70-140)
[2017-08-09 15:05] LABS: PROTEIN BETA 2 0.45 g/dL (0.18-0.50); Protein Beta 1 0.39 g/dL (0.35-0.66)
[2017-08-09 20:47] LABS: Monoclonal Protein ID Interp See Result Note:
== END 2017-08-08 05:15 | disposition critical access hospital (66) ==
LOC: ED 04:58 → ICU 08:29
PROVIDERS: ADMIT Internal Medicine; ATTEND Internal Medicine
DX: I26.99 Other pulmonary embolism without acute cor pulmonale (principal); R50.9 Fever, unspecified; Z72.0 Tobacco use; Z79.01 Long term (current) use of anticoagulants
CPT/HCPCS: 36000; 36415; 71010; 71020; 71260; 80053; 81241; 82550; 82565; 83880; 84155; 84484; 84520; 85025; 85027; 85300; 85302; 85303; 85305; 85379; 85610; 85613; 85705; 85730; 86334; 86592; 86701; 86702; 87040; 87389; 93005; 93041; 93268; 93970; 96360; 96374; 96376; 99285; G0378; J1170; J1650; J1885; J2270; A9270-GY

== ENCOUNTER 2020-07-09 05:22 | Emergency (ER) | payer OTHER, SELFPAY ==
[2020-07-09 05:46] VITALS: PULSE 100; O2SAT 100
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
[2020-07-09 06:39] VITALS: BP 135/83
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
== END 2020-07-09 06:53 ==
LOC: ED 05:22
DX: S43.401A Unspecified sprain of right shoulder joint, initial encounter (principal); V89.2XXA Person injured in unspecified motor-vehicle accident, traffic, initial encounter
CPT/HCPCS: 36415; 73030; 80307; 99284; G0480